=== PATIENT | female | born 1970 | race Caucasian/White ===

== ENCOUNTER 2018-12-16 15:02 | Emergency (ER) | payer OTHER ==
[~2018-12-16] VITALS: Ht 162.6 cm; Wt 72.6 kg
[2018-12-16] MEDS ORDERED: METFORMIN HCL500 MG PO (15:16)
[2018-12-16] MEDS ORDERED: NORVASC10 MG PO (15:16)
[2018-12-16] MEDS ORDERED: AVAPRO 150 MG150 M1 PO (15:17)
[2018-12-16 15:26] LABS: URINE BILIRUBIN NEGATIVE (Negative); URINE BLOOD NEGATIVE (Negative); URINE CLARITY CLEAR; URINE COLOR YELLOW; URINE GLUCOSE-RANDOM* NEGATIVE (Negative); URINE KETONES NEGATIVE (Negative); URINE LEUKOCYTES-REFLEX NEGATIVE (Negative); URINE NITRITE-REFLEX NEGATIVE (Negative); URINE PROTEIN (DIPSTICK) NEGATIVE (Negative); URINE SPECIFIC GRAVITY <= 1.005 (1.005-1.035); URINE UROBILINOGEN 0.2 E.U./dl (0.2-1.0)
[2018-12-16] MEDS ORDERED: TIZANIDINE HCL4 MG PO (15:46)
[2018-12-16 16:13] VITALS: BP 140/83
== END 2018-12-16 16:00 | disposition home or self-care (01) ==
LOC: ER 15:02
PROVIDERS: Nurse Practitioner
DX: K08.89 Other specified disorders of teeth and supporting structures (principal); M54.30 Sciatica, unspecified side; E11.9 Type 2 diabetes mellitus without complications; I10 Essential (primary) hypertension